=== PATIENT | female | born 1955 | race Caucasian/White ===

== ENCOUNTER → 2017-05-25 | Day surgery (SDC) | payer OTHER ==
[~2017-05-25] VITALS: Ht 147.3 cm; Wt 90.7 kg
[~2017-05-25] MED LIST: AMLODIPINE BESYL5 MG PO; AMOXICILLIN500 MG PO; ASPIRIN81 M1 PO; B12100 MC1 PO; BACTRIM DS 8001 TA1 PO; BP PILL; CALCIUM 600600 MG PO; CEFTIN500 M1 PO; CIPRO250 MG PO; DOXYCYCLINE100 M3 PO; Flovent 220 M220 MCG INH; Hydralazine Hyd25 MG PO; KEFLEX500 MG PO; LEVOTHYROXIN0.075 MG PO; MACROBID100 M1 PO; MOBIC7.5 MG PO; MOTRIN800 MG PO; OMEPRAZOLE40 MG PO; OXYBUTYNIN10 MG PO; OXYBUTYNIN5 MG PO; PHENERGAN25 M3 PO; PRINIVIL20 MG PO; PYRIDIUM200 M1 PO; Proloprim100 MG PO; SIMVASTATIN20 MG PO; SYNTHROID0.2 M1 PO; Synthroid,Levo50 MCG PO; ULTRAM50 MG PO; VENTOLIN H0.09 MG/AC INH; VICODIN ES 7501 TAB PO; VITAMIN D1000 IU PO; ZANTAC 150150 MG PO; ZITHROMAX Z PA250 MG PO; ZYRTEC10 MG PO
--- NOTE | ~2017-05-25 | PROC NOTE ---
[place], [place] PROCEDURE NOTE NAME: YONI TERESA UNIT #: [id number] ROOM: DOCTOR: BOBBI TEAGUE MD BIRTHDATE: [birth year] DOS: PROCEDURES: 1. Esophagogastroduodenoscopy and biopsy. 2. Colonoscopy and polypectomy. INDICATIONS: GERD, change in bowel habits and colon cancer screening. Informed consent was obtained from the patient after indication of procedures, the alternatives and potential complications were explained to her. PROCEDURE MEDICATIONS: Sedation was administered by Anesthesiology Department. SCOPE USED: Upper endoscopy was Olympus diagnostic adult upper endoscope GIF-180. Depth of insertion was to the descending duodenum. With the colonoscopy, the scope used was Olympus pediatric colonoscope variable stiffness GIF-180 100, that insertion was to the cecum, which was identified by the usual landmarks, appendiceal orifice, ileocecal valve and triangle fold. FINDINGS: After adequate sedation, the patient was placed in left lateral decubitus position. Upper endoscopy was performed first and the scope was introduced under direct visualization through the upper esophageal sphincter into the esophagus. Esophageal mucosa appeared normal with no ulcerations or strictures. Lower esophageal sphincter was identified at 38 cm from incisors and normal appearing Z-line. Stomach was then intubated and the gastric mucosa inspected. Severe atrophic gastritis was noted, with no discrete ulcers or active bleeding. A CLOtest was performed from a gastric antrum body. On retroflexed views in the fundus, no hiatal hernia was seen. Pylorus was intubated easily. The duodenal bulb and descending duodenum were within normal range. The scope was then withdrawn after the stomach was decompressed. We then proceeded with the colonoscopy. Rectal examination showed a diminished sphincter tone and no external hemorrhoids. Scope was introduced into the rectum, then advanced to the cecum with some difficulty due to looping in the left colon. The prep was good. Two polyps were identified. An 8-mm proximal transverse colon and a 6-mm descending colon polyps. Both polyps were removed with the cold mini snare and recovered. The remaining colon mucosa appeared otherwise normal with no evidence of diverticular ulcerations or obstructing lesions. Retroflexed views in the rectum were unremarkable. The scope was then withdrawn. After this, the rectum was decompressed. The patient tolerated the procedures well. IMPRESSION: 1. Atrophic gastritis, CLOtest performed. 2. Diminutive colon polyps x2, removed. 3. Normal colon mucosa otherwise. PLAN: We will review the histopathology and ANGIE test results, treat the patient accordingly. Office followup will be scheduled in 2-3 weeks. The patient was advised to avoid aspirin and NSAIDs for the next 10 days. [place], [place] PROCEDURE NOTE NAME: YONI TERESA UNIT #: [id number] ROOM: DOCTOR: ZAHIDA KENNY,BOBBI BIRTHDATE: [birth year] BOBBI TEAGUE MD CM:PROCNOTE:PROCEDURE NOTE [id number] MARSHALL TEAGUE MD
[2017-05-25 07:30] VITALS: BP 210/89
[2017-05-25 08:44] VITALS: BP 115/53
[2017-05-25 08:58] VITALS: BP 124/58
[2017-05-25 09:13] VITALS: BP 143/51
== END | disposition home or self-care (01) ==
LOC: SDC 05-21 08:45
DX: D12.3 Benign neoplasm of transverse colon (principal); D12.4 Benign neoplasm of descending colon; K29.60 Other gastritis without bleeding; J44.9 Chronic obstructive pulmonary disease, unspecified; E03.9 Hypothyroidism, unspecified; E78.00 Pure hypercholesterolemia, unspecified; K21.9 Gastro-esophageal reflux disease without esophagitis; M54.5 Low back pain; G89.29 Other chronic pain; I12.9 Hypertensive chronic kidney disease with stage 1 through stage 4 chronic kidney disease, or unspecified chronic kidney disease; N18.3 Chronic kidney disease, stage 3 (moderate); Z98.51 Tubal ligation status; Z82.49 Family history of ischemic heart disease and other diseases of the circulatory system; Z79.82 Long term (current) use of aspirin; Z79.899 Other long term (current) drug therapy; M19.90 Unspecified osteoarthritis, unspecified site

== ENCOUNTER 2017-06-07 14:09 | Emergency (ER) | payer OTHER ==
[~2017-06-07] VITALS: Ht 147.3 cm; Wt 90.7 kg
[2017-06-07] MEDS ORDERED: APRESOLINE25 MG PO (14:22)
[2017-06-07 14:33] LABS: BILIRUBIN NEGATIVE (NEGATIVE); BLOOD NEGATIVE (NEGATIVE); CLARITY SL CLOUDY (CLEAR); COLOR YELLOW (YELLOW); GLUCOSE NEGATIVE (NEGATIVE); KETONE NEGATIVE (NEGATIVE); LEUKO ESTERASE 3+ (NEGATIVE); NITRITE NEGATIVE (NEGATIVE); PH 7.5 (5.0-9.0); SPECIFIC GRAVITY 1.015 (1.005-1.030); UROBILINOGEN 0.2 E.U./dl (0.2-1.0)
[2017-06-07 14:40] LABS: BACTERIA 4+; WBC 41-50 wbc/hpf (0-5)
[2017-06-07 14:41] LABS: TRIP PHOS CRYSTALS 1+
[2017-06-07] MEDS ORDERED: PYRIDIUM200 M1 PO (14:48)
[2017-06-07] MEDS ORDERED: MACROBID100 M1 PO (14:48)
== END 2017-06-07 15:15 | disposition home or self-care (01) ==
LOC: ED 14:09
PROVIDERS: Nurse Practitioner Family
DX: N39.0 Urinary tract infection, site not specified (principal); Z88.2 Allergy status to sulfonamides; Z98.51 Tubal ligation status

== ENCOUNTER → 2017-07-06 | Outpatient (CLI) | payer OTHER ==
[~2017-07-06] MED LIST changes: +APRESOLINE25 MG PO; +Meclizine25 MG PO
== END | disposition home or self-care (01) ==
LOC: LAB 14:12
DX: A04.8 Other specified bacterial intestinal infections (principal)

== ENCOUNTER 2017-07-07 14:33 | Emergency (ER) | payer OTHER ==
[~2017-07-07] VITALS: Ht 144.7 cm; Wt 90.7 kg
[~2017-07-07 14:33] MED LIST changes: -Meclizine25 MG PO
[2017-07-07 15:05] LABS: BASO % 0.5 % (0.0-1.0); EOS # 0.2 10*3/uL (0.0-0.4); EOS % 2.2 % (1.0-4.0); HEMATOCRIT 41.4 % (37.0-47.0); LYMPH # 1.6 10*3/uL (1.3-4.4); LYMPH % 22.3 % (27.0-41.0); MEAN CELL VOLUME 84.7 fl (81.0-99.0); MEAN CORPUSCULAR HGB 26.6 pg (27.0-31.0); MEAN CORPUSCULAR HGB CONC 31.4 g/dl (33.0-37.0); MONO # 0.6 10*3/uL (0.1-1.0); MONO % 8.1 % (3.0-9.0); NEUT # 4.9 10*3/uL (2.3-7.9); NEUT % 66.6 % (47.0-73.0); PLATELET COUNT AUTOMATED 151 10*3/uL (130-400); RED BLOOD COUNT 4.89 10*6/uL (4.10-5.10); RED CELL DISTRI WIDTH 15.3 % (0-14.5); WHITE BLOOD COUNT 7.3 10*3/uL (4.8-10.8)
[2017-07-07 15:14] LABS: ACT PARTIAL THROMBO TIME 21.7 SECONDS (20.8-31.5); INTERNATIONAL NORM RATIO 0.9 (2.0-3.5)
[2017-07-07 15:20] LABS: CREATININE 1.78 mg/dL (0.55-1.02); POTASSIUM 4.8 mmol/L (3.5-5.1)
[2017-07-07 16:54] LABS: BILIRUBIN NEGATIVE (NEGATIVE); BLOOD TRACE-INTACT (NEGATIVE); CLARITY CLOUDY (CLEAR); COLOR YELLOW (YELLOW); GLUCOSE NEGATIVE (NEGATIVE); KETONE NEGATIVE (NEGATIVE); LEUKO ESTERASE 2+ (NEGATIVE); NITRITE NEGATIVE (NEGATIVE); PH 5.5 (5.0-9.0); SPECIFIC GRAVITY <= 1.005 (1.005-1.030); UROBILINOGEN 0.2 E.U./dl (0.2-1.0)
[2017-07-07 17:05] LABS: BACTERIA 4+; MUCOUS TRACE; RBC 0-2 rbc/hpf (0-2)
[2017-07-07] MEDS ORDERED: Meclizine25 MG PO (17:14)
== END 2017-07-07 17:16 | disposition home or self-care (01) ==
LOC: ED 14:33
PROVIDERS: Emergency Medicine
DX: R42 Dizziness and giddiness (principal); J45.909 Unspecified asthma, uncomplicated; I10 Essential (primary) hypertension; K21.9 Gastro-esophageal reflux disease without esophagitis; E78.00 Pure hypercholesterolemia, unspecified; E03.9 Hypothyroidism, unspecified; M81.0 Age-related osteoporosis without current pathological fracture; Z98.51 Tubal ligation status; Z98.890 Other specified postprocedural states; Z79.82 Long term (current) use of aspirin; Z79.899 Other long term (current) drug therapy; Z88.2 Allergy status to sulfonamides

== ENCOUNTER → 2017-07-09 | Outpatient (CLI) | payer OTHER ==
[~2017-07-09] MED LIST changes: +Meclizine25 MG PO
== END ==
LOC: RAD 13:59
DX: M17.11 Unilateral primary osteoarthritis, right knee (principal)

== ENCOUNTER → 2017-07-25 | Outpatient (CLI) | payer OTHER | END | disposition home or self-care (01) | LOC: MAMMO 10:23 | DX: Z12.31 Encounter for screening mammogram for malignant neoplasm of breast (principal) ==

== ENCOUNTER 2017-12-21 12:14 | Emergency (ER) | payer OTHER ==
[~2017-12-21] VITALS: Ht 147.3 cm; Wt 81.6 kg
[2017-12-21] MEDS ORDERED: CLINDAMYCIN HC300 MG PO (16:24)
== END 2017-12-21 16:29 | disposition home or self-care (01) ==
LOC: ED 12:14
DX: L03.213 Periorbital cellulitis (principal); I10 Essential (primary) hypertension; J45.909 Unspecified asthma, uncomplicated; K21.9 Gastro-esophageal reflux disease without esophagitis; E78.00 Pure hypercholesterolemia, unspecified; E03.9 Hypothyroidism, unspecified; N17.0 Acute kidney failure with tubular necrosis; Z98.51 Tubal ligation status; Z88.2 Allergy status to sulfonamides; Z79.899 Other long term (current) drug therapy; Z79.82 Long term (current) use of aspirin

== ENCOUNTER 2018-02-10 11:45 | Emergency (ER) | payer OTHER ==
[~2018-02-10] VITALS: Ht 144.7 cm; Wt 81.2 kg
[~2018-02-10 11:45] MED LIST changes: +CLINDAMYCIN HC300 MG PO
[2018-02-10] MEDS ORDERED: BACTROBAN NASAL1 GM NAS (11:51)
[2018-02-10] MEDS ORDERED: CEPHALEXIN500 M1 PO (11:52)
== END 2018-02-10 11:58 | disposition home or self-care (01) ==
LOC: ED 11:45
DX: J32.8 Other chronic sinusitis (principal); Z98.51 Tubal ligation status; Z98.890 Other specified postprocedural states; Z79.82 Long term (current) use of aspirin; Z79.899 Other long term (current) drug therapy; Z88.2 Allergy status to sulfonamides

== ENCOUNTER → 2018-11-20 | Outpatient (CLI) | payer OTHER, MEDICAID ==
[~2018-11-20] MED LIST changes: +BACTROBAN NASAL1 GM NAS; +CEPHALEXIN500 M1 PO
== END | disposition home or self-care (01) ==
LOC: RAD 11:50
DX: M17.11 Unilateral primary osteoarthritis, right knee (principal); M25.461 Effusion, right knee

== ENCOUNTER → 2019-04-24 | Outpatient (CLI) | payer OTHER, MEDICAID ==
[~2019-04-24] MED LIST changes: +ALENDRONATE SOD35 M1 PO; +LIPITOR10 MG PO; +PREDNISONE20 M1 PO; +VALTREX1000 MG PO
== END | disposition home or self-care (01) ==
LOC: RAD 14:05
DX: R06.02 Shortness of breath (principal)

== ENCOUNTER → 2019-05-06 | Outpatient (CLI) | payer OTHER, MEDICAID ==
[~2019-05-06] MED LIST changes: -ALENDRONATE SOD35 M1 PO; -LIPITOR10 MG PO; -PREDNISONE20 M1 PO; -VALTREX1000 MG PO
--- NOTE | ~2019-05-06 | EKG ---
[place], [place] ELECTROCARDIOGRAM REPORT NAME: YONI TERESA UNIT #: [id number] ROOM: DOCTOR: ABDON DRAFT REPORT BIRTHDATE: [birth year] [facility] Test Date: 2019-05-06 Test Time: 10:54:48 Pat Name: YONI TERESA Department: Room: Gender: F Litigation Legal Secretary: : 1955 Requested By: GREGORIA NGUYỄN Order Number: [id number] Reading MD: Ru Abbott MD Measurements Intervals [place] Rate: 106 P: -5 IN: 187 QRS: -12 QRSD: 83 T: -3 QT: 332 QTc: 441 Interpretive Statements Sinus tachycardia with irregular rate Abnormal R-wave progression, late transition Probable left ventricular hypertrophy Electronically Signed On 05-08-2019 7:49:35 PDT by Ru Abbott MD CM:EKGRPT:ELECTROCARDIOGRAM REPORT [id number] GREGORIA COPPOLA DRAFT REPORT GREGORIA NGUYỄN
== END | disposition home or self-care (01) ==
LOC: CARD 10:36
DX: R07.9 Chest pain, unspecified (principal)

== ENCOUNTER 2019-05-23 10:53 | Emergency (ER) | payer OTHER, MEDICAID ==
[~2019-05-23] VITALS: Ht 144.7 cm; Wt 79.4 kg
[2019-05-23 11:04] LABS: BILIRUBIN NEGATIVE (NEGATIVE); BLOOD NEGATIVE (NEGATIVE); CLARITY CLOUDY (CLEAR); COLOR YELLOW (YELLOW); GLUCOSE NEGATIVE (NEGATIVE); KETONE NEGATIVE (NEGATIVE); LEUKO ESTERASE 2+ (NEGATIVE); NITRITE NEGATIVE (NEGATIVE); PH 5.5 (5.0-9.0); UROBILINOGEN 0.2 E.U./dl (0.2-1.0)
[2019-05-23 11:14] LABS: BACTERIA 4+; EPITHELIAL CELLS 21-30; WBC 51-100 wbc/hpf (0-5)
[2019-05-23] MEDS ORDERED: VALTREX1000 MG PO (11:39)
[2019-05-23] MEDS ORDERED: PYRIDIUM200 M1 PO (11:39)
[2019-05-23] MEDS ORDERED: PREDNISONE20 M1 PO (11:39)
[2019-05-23] MEDS ORDERED: MACROBID100 M1 PO (11:39)
[2019-06-12] MEDS ORDERED: OMEPRAZOLE40 MG PO (11:08)
[2019-06-12] MEDS ORDERED: LIPITOR10 MG PO (11:08)
[2019-06-12] MEDS ORDERED: ALENDRONATE SOD35 M1 PO (11:08)
== END 2019-05-23 11:48 | disposition home or self-care (01) ==
LOC: ED 10:53
PROVIDERS: Emergency Medicine
DX: B02.9 Zoster without complications (principal); N39.0 Urinary tract infection, site not specified; Z88.2 Allergy status to sulfonamides; Z79.899 Other long term (current) drug therapy; Z79.82 Long term (current) use of aspirin

== ENCOUNTER → 2019-06-12 | Outpatient (CLI) | payer OTHER, MEDICAID ==
[~2019-06-12] MED LIST changes: +ALENDRONATE SOD35 M1 PO; +LIPITOR10 MG PO; +PREDNISONE20 M1 PO; +VALTREX1000 MG PO
--- NOTE | ~2019-06-12 | ST ---
[place], [place] EXERCISE STRESS TEST REPORT NAME: YONI TERESA UNIT #: [id number] ROOM: DOCTOR: KALEE KENNY [facility],DEANNE BIRTHDATE: [birth year] DOS: 06/12/2019 LEXISCAN CARDIOLITE The patient received Lexiscan 0.4 mg over 10 seconds. Heart rate is 108. No ischemic changes on EKG. No complication noted. Isotope was injected. Myocardial perfusion scan to follow. DEANNE GRANDA MD CM:STRESS:EXERCISE STRESS TEST REPORT [id number] DEANNE GRANDA MD [facility]
--- NOTE | 2019-06-12 14:54 | NUR ---
INFORMED SIGNED CONSENT OBTAINED FOR LEXISCAN STRESS TEST WITH DR GRANDA. RESTING EKG SINUS BRADYCARDIA HR 62 BP 142/70. PULSE OX 96% LUNGS CLEAR. PT COMPLETED ONE MINUTE OF A LEXISCAN PROTOCOL WITH PT RECEIVING LEXISCAN 0.4MG IV OVER 10 SECONDS. NO ARRHYTHMIAS OR ST CHANGES NOTED. LAST RECOVERY HR OF 97 BP 136/54. PT IN STABLE CONDITION, AWAITING NUCLEAR IMAGES.
== END | disposition home or self-care (01) ==
LOC: CARD 00:32
DX: I12.9 Hypertensive chronic kidney disease with stage 1 through stage 4 chronic kidney disease, or unspecified chronic kidney disease (principal); N18.3 Chronic kidney disease, stage 3 (moderate); R07.9 Chest pain, unspecified; R06.02 Shortness of breath; Z82.49 Family history of ischemic heart disease and other diseases of the circulatory system

== ENCOUNTER → 2019-08-27 | Outpatient (CLI) | payer OTHER, MEDICAID | END | disposition home or self-care (01) | LOC: RAD 13:33 | DX: R10.32 Left lower quadrant pain (principal) ==

== ENCOUNTER → 2019-09-09 | Outpatient (CLI) | payer OTHER, MEDICAID | END | disposition home or self-care (01) | LOC: MAMMO 08-18 10:00 | DX: Z12.31 Encounter for screening mammogram for malignant neoplasm of breast (principal) ==

== ENCOUNTER → 2019-09-12 | Outpatient (CLI) | payer OTHER, MEDICAID | END | disposition home or self-care (01) | LOC: CT 00:13 | DX: K57.90 Diverticulosis of intestine, part unspecified, without perforation or abscess without bleeding (principal) ==

== ENCOUNTER → 2020-02-04 | Outpatient (CLI) | payer OTHER, MEDICAID | END | disposition home or self-care (01) | LOC: CARD 10:26 | DX: R01.1 Cardiac murmur, unspecified (principal) ==

== ENCOUNTER 2020-10-10 04:55 | Inpatient (IN) | payer OTHER, MEDICAID ==
[~2020-10-10] VITALS: Ht 134.6 cm; Wt 84.5 kg
[~2020-10-10 04:55] MED LIST changes: +CALCIUM + D3 E1 EACH PO; -CALCIUM 600600 MG PO
[2020-10-10 05:01] VITALS: BP 155/64
[2020-10-10 05:39] LABS: BILIRUBIN Negative (Negative); BLOOD 2+ (Negative); CLARITY Cloudy (Clear); COLOR Yellow (Yellow); GLUCOSE Negative (Negative); KETONE 1+ (Negative); LEUKO ESTERASE Trace (Negative); NITRITE Positive (Negative); PH 6.5 (4.5-8.0); UROBILINOGEN 0.2 E.U./dl (0.0-1.0)
[2020-10-10 05:53] LABS: BACTERIA 2+
[2020-10-10 06:01] LABS: HEMATOCRIT 35.2 % (37.0-47.0); LYMPH # 0.5 10*3/uL (1.3-4.4); LYMPH % 13.7 % (27.0-41.0); MEAN CELL VOLUME 84.8 fl (81.0-99.0); MEAN CORPUSCULAR HGB 26.3 pg (27.0-31.0); MEAN PLATELET VOLUME 12.2 fl (9.6-12.3); MONO # 0.3 10*3/uL (0.1-1.0); MONO % 9.7 % (3.0-9.0); NEUT # 2.7 10*3/uL (2.3-7.9); PLATELET COUNT AUTOMATED 154 10*3/uL (130-400); RED BLOOD COUNT 4.15 10*6/uL (4.10-5.10); RED CELL DISTRI WIDTH 15.1 % (0-14.5); WHITE BLOOD COUNT 3.5 10*3/uL (4.8-10.8)
[2020-10-10 06:13] LABS: ALBUMIN 2.9 gm/dl (3.1-4.5); CREATININE 1.68 mg/dL (0.55-1.02); POTASSIUM 4.5 mmol/L (3.5-5.1); TOTAL PROTEIN 7.3 gm/dL (6.4-8.2)
[2020-10-10 07:29] VITALS: BP 135/57
[2020-10-10 11:58] VITALS: BP 152/60
[2020-10-10] MEDS ORDERED: METOPROLOL SUC100 M1 PO (12:05)
[2020-10-10] MEDS ORDERED: PLAVIX75 M1 PO (12:06)
[2020-10-10] MEDS ORDERED: FOSAMAX70 M1 PO (12:07)
[2020-10-10] MEDS ORDERED: VITAMIN C500 M8 PO (12:07)
[2020-10-10 16:00] VITALS: BP 126/61
[2020-10-10 20:00] VITALS: BP 130/68; BP 136/68
[2020-10-11] VITALS: BP 134/50
[2020-10-11 06:22] LABS: HEMATOCRIT 31.9 % (37.0-47.0); LYMPH # 0.6 10*3/uL (1.3-4.4); MEAN CELL VOLUME 82.9 fl (81.0-99.0); MEAN CORPUSCULAR HGB 26.2 pg (27.0-31.0); MEAN CORPUSCULAR HGB CONC 31.7 g/dl (33.0-37.0); MEAN PLATELET VOLUME 11.8 fl (9.6-12.3); MONO # 0.3 10*3/uL (0.1-1.0); MONO % 10.8 % (3.0-9.0); NEUT # 1.8 10*3/uL (2.3-7.9); NEUT % 65.5 % (47.0-73.0); PLATELET COUNT AUTOMATED 158 10*3/uL (130-400); RED BLOOD COUNT 3.85 10*6/uL (4.10-5.10); WHITE BLOOD COUNT 2.8 10*3/uL (4.8-10.8)
[2020-10-11 06:38] LABS: ALBUMIN 2.5 gm/dl (3.1-4.5); POTASSIUM 4.6 mmol/L (3.5-5.1); TOTAL PROTEIN 6.5 gm/dL (6.4-8.2)
[2020-10-11 06:45] LABS: CREATININE 1.25 mg/dL (0.55-1.02); THYROID STIM HORMONE (HS) 0.431 uIU/ml (0.358-4.75)
[2020-10-11 08:00] VITALS: BP 125/51
[2020-10-11 10:23] LABS: FERRITIN 807.6 ng/mL (10.0-291.0); VITAMIN D, 25-HYDROXY 33.6 ng/mL (30-100)
[2020-10-11 12:00] VITALS: BP 156/50
[2020-10-11 16:00] VITALS: BP 145/62
[2020-10-11 20:00] VITALS: BP 148/57
[2020-10-12] VITALS: BP 147/58
[2020-10-12 06:15] LABS: HEMATOCRIT 32.9 % (37.0-47.0); LYMPH # 0.9 10*3/uL (1.3-4.4); LYMPH % 12.6 % (27.0-41.0); MEAN CELL VOLUME 82.3 fl (81.0-99.0); MEAN CORPUSCULAR HGB CONC 31.6 g/dl (33.0-37.0); MEAN PLATELET VOLUME 12.4 fl (9.6-12.3); MONO # 0.4 10*3/uL (0.1-1.0); MONO % 6.2 % (3.0-9.0); NEUT # 5.6 10*3/uL (2.3-7.9); NEUT % 80.5 % (47.0-73.0); PLATELET COUNT AUTOMATED 184 10*3/uL (130-400); RED CELL DISTRI WIDTH 15.2 % (0-14.5); WHITE BLOOD COUNT 6.9 10*3/uL (4.8-10.8)
[2020-10-12 06:20] LABS: ALBUMIN 2.5 gm/dl (3.1-4.5); CREATININE 1.32 mg/dL (0.55-1.02); POTASSIUM 4.8 mmol/L (3.5-5.1); TOTAL PROTEIN 6.4 gm/dL (6.4-8.2)
[2020-10-12 07:14] LABS: ARTERIAL BLOOD GAS PH 7.392 (7.35-7.45); ARTERIAL BLOOD GAS PO2 64.8 (80-90)
[2020-10-12 07:15] LABS: ABG BASE EXCESS -8.8 mmol/L (-2.0-2.0)
[2020-10-12 08:00] VITALS: BP 147/76
[2020-10-12 12:00] VITALS: BP 119/88
[2020-10-12 12:11] LABS: ARTERIAL BLOOD GAS PH 7.386 (7.35-7.45); ARTERIAL BLOOD GAS PO2 72.7 (80-90)
[2020-10-12 12:12] LABS: ABG BASE EXCESS -8.2 mmol/L (-2.0-2.0)
[2020-10-12 16:00] VITALS: BP 127/42
[2020-10-12 20:00] VITALS: BP 138/46
[2020-10-13] VITALS: BP 140/46
[2020-10-13 06:11] LABS: ALBUMIN 2.2 gm/dl (3.1-4.5); CREATININE 1.29 mg/dL (0.55-1.02)
[2020-10-13 06:21] LABS: HEMATOCRIT 31.2 % (37.0-47.0); LYMPH # 0.7 10*3/uL (1.3-4.4); LYMPH % 9.4 % (27.0-41.0); MEAN CELL VOLUME 82.1 fl (81.0-99.0); MEAN CORPUSCULAR HGB 26.6 pg (27.0-31.0); MEAN CORPUSCULAR HGB CONC 32.4 g/dl (33.0-37.0); MEAN PLATELET VOLUME 11.9 fl (9.6-12.3); MONO # 0.5 10*3/uL (0.1-1.0); MONO % 6.9 % (3.0-9.0); NEUT % 82.3 % (47.0-73.0); PLATELET COUNT AUTOMATED 198 10*3/uL (130-400); RED CELL DISTRI WIDTH 15.2 % (0-14.5); WHITE BLOOD COUNT 7.2 10*3/uL (4.8-10.8)
[2020-10-13 06:31] VITALS: BP 130/30
[2020-10-13 08:00] VITALS: BP 114/83
[2020-10-13 08:28] LABS: ARTERIAL BLOOD GAS PH 7.397 (7.35-7.45); ARTERIAL BLOOD GAS PO2 59.4 (80-90)
[2020-10-13 08:29] LABS: ABG BASE EXCESS -7.3 mmol/L (-2.0-2.0)
[2020-10-13 12:00] VITALS: BP 132/42
[2020-10-13 16:00] VITALS: BP 132/44
[2020-10-13 20:00] VITALS: BP 131/51
[2020-10-14] VITALS: BP 143/59
[2020-10-14 06:20] LABS: HEMATOCRIT 32.5 % (37.0-47.0); MEAN CELL VOLUME 82.5 fl (81.0-99.0); MEAN CORPUSCULAR HGB 26.1 pg (27.0-31.0); MEAN CORPUSCULAR HGB CONC 31.7 g/dl (33.0-37.0); MEAN PLATELET VOLUME 11.6 fl (9.6-12.3); NUCLEATED RED BLOOD CELL 0.3 % (0.0-0.0); PLATELET COUNT AUTOMATED 244 10*3/uL (130-400); RED BLOOD COUNT 3.94 10*6/uL (4.10-5.10); RED CELL DISTRI WIDTH 15.2 % (0-14.5); WHITE BLOOD COUNT 7.4 10*3/uL (4.8-10.8)
[2020-10-14 06:22] LABS: ALBUMIN 2.2 gm/dl (3.1-4.5); CREATININE 1.27 mg/dL (0.55-1.02)
[2020-10-14 06:49] LABS: PLATELET SUFFICIENCY NORMAL (NORMAL); TOTAL CELLS COUNTED 100 #CELLS
[2020-10-14 06:50] LABS: BURR CELLS FEW; SCHISTOCYTES FEW
[2020-10-14 07:22] LABS: ARTERIAL BLOOD GAS PH 7.456 (7.35-7.45); ARTERIAL BLOOD GAS PO2 87.9 (80-90)
[2020-10-14 07:23] LABS: ABG BASE EXCESS -6.9 mmol/L (-2.0-2.0)
[2020-10-14 08:00] VITALS: BP 135/43
[2020-10-14 12:00] VITALS: BP 110/47
[2020-10-14 16:00] VITALS: BP 135/50
[2020-10-14 20:00] VITALS: BP 132/50
[2020-10-15] VITALS: BP 130/76
[2020-10-15 06:05] LABS: HEMATOCRIT 32.8 % (37.0-47.0); MEAN CELL VOLUME 81.6 fl (81.0-99.0); MEAN CORPUSCULAR HGB 26.4 pg (27.0-31.0); MEAN CORPUSCULAR HGB CONC 32.3 g/dl (33.0-37.0); MEAN PLATELET VOLUME 11.5 fl (9.6-12.3); PLATELET COUNT AUTOMATED 274 10*3/uL (130-400); RED BLOOD COUNT 4.02 10*6/uL (4.10-5.10); RED CELL DISTRI WIDTH 15.2 % (0-14.5); WHITE BLOOD COUNT 9.4 10*3/uL (4.8-10.8)
[2020-10-15 06:10] VITALS: BP 110/40
[2020-10-15 06:30] LABS: CREATININE 1.21 mg/dL (0.55-1.02); POTASSIUM 5.2 mmol/L (3.5-5.1)
[2020-10-15 06:31] LABS: ALBUMIN 2.2 gm/dl (3.1-4.5); TOTAL PROTEIN 5.8 gm/dL (6.4-8.2)
[2020-10-15 07:55] LABS: BURR CELLS MODERATE; PLATELET SUFFICIENCY NORMAL (NORMAL); TOTAL CELLS COUNTED 100 #CELLS
[2020-10-15 08:00] VITALS: BP 153/59
[2020-10-15 12:00] VITALS: BP 145/68
[2020-10-15 12:36] LABS: CREATININE 1.23 mg/dL (0.55-1.02); POTASSIUM 5.4 mmol/L (3.5-5.1)
[2020-10-15 16:00] VITALS: BP 148/63
[2020-10-15 20:00] VITALS: BP 129/46
[2020-10-16] VITALS: BP 118/48
[2020-10-16 06:17] LABS: HEMATOCRIT 34.1 % (37.0-47.0); MEAN CELL VOLUME 82.2 fl (81.0-99.0); MEAN CORPUSCULAR HGB CONC 31.7 g/dl (33.0-37.0); MEAN PLATELET VOLUME 11.3 fl (9.6-12.3); NUCLEATED RED BLOOD CELL 0.2 % (0.0-0.0); PLATELET COUNT AUTOMATED 281 10*3/uL (130-400); RED BLOOD COUNT 4.15 10*6/uL (4.10-5.10); RED CELL DISTRI WIDTH 15.4 % (0-14.5); WHITE BLOOD COUNT 9.5 10*3/uL (4.8-10.8)
[2020-10-16 06:26] LABS: ALBUMIN 2.3 gm/dl (3.1-4.5); POTASSIUM 5.6 mmol/L (3.5-5.1)
[2020-10-16 06:27] LABS: CREATININE 1.45 mg/dL (0.55-1.02)
[2020-10-16 07:02] LABS: PLATELET SUFFICIENCY NORMAL (NORMAL); POLYCHROMASIA SLIGHT; TOTAL CELLS COUNTED 100 #CELLS
[2020-10-16 07:03] LABS: OVALOCYTES FEW
[2020-10-16 08:00] VITALS: BP 122/52
[2020-10-16 12:00] VITALS: BP 147/134
[2020-10-16 16:00] VITALS: BP 121/58
[2020-10-16 20:00] VITALS: BP 156/56
[2020-10-17 06:20] LABS: HEMATOCRIT 34.6 % (37.0-47.0); MEAN CELL VOLUME 82.4 fl (81.0-99.0); MEAN CORPUSCULAR HGB CONC 31.5 g/dl (33.0-37.0); MEAN PLATELET VOLUME 11.6 fl (9.6-12.3); PLATELET COUNT AUTOMATED 296 10*3/uL (130-400); RED CELL DISTRI WIDTH 15.4 % (0-14.5); WHITE BLOOD COUNT 10.1 10*3/uL (4.8-10.8)
[2020-10-17 06:48] LABS: TOTAL CELLS COUNTED 100 #CELLS
[2020-10-17 06:49] LABS: BURR CELLS FEW; PLATELET SUFFICIENCY NORMAL (NORMAL); POLYCHROMASIA SLIGHT
[2020-10-17 06:52] LABS: ALBUMIN 2.3 gm/dl (3.1-4.5); CREATININE 1.17 mg/dL (0.55-1.02); POTASSIUM 5.1 mmol/L (3.5-5.1); TOTAL PROTEIN 5.8 gm/dL (6.4-8.2)
[2020-10-17 12:00] VITALS: BP 137/57
[2020-10-18 08:00] VITALS: BP 128/60
[2020-10-18 12:00] VITALS: BP 127/64
[2020-10-18 16:00] VITALS: BP 126/54
[2020-10-18 20:00] VITALS: BP 117/42
[2020-10-19] VITALS: BP 143/55
[2020-10-19 06:04] LABS: CREATININE 1.38 mg/dL (0.55-1.02); POTASSIUM 5.1 mmol/L (3.5-5.1)
[2020-10-19 06:20] LABS: HEMATOCRIT 34.7 % (37.0-47.0); MEAN CELL VOLUME 84.2 fl (81.0-99.0); MEAN CORPUSCULAR HGB 26.2 pg (27.0-31.0); MEAN CORPUSCULAR HGB CONC 31.1 g/dl (33.0-37.0); MEAN PLATELET VOLUME 11.4 fl (9.6-12.3); PLATELET COUNT AUTOMATED 241 10*3/uL (130-400); RED BLOOD COUNT 4.12 10*6/uL (4.10-5.10); RED CELL DISTRI WIDTH 15.4 % (0-14.5); WHITE BLOOD COUNT 9.9 10*3/uL (4.8-10.8)
[2020-10-19 07:45] LABS: POLYCHROMASIA SLIGHT; TOTAL CELLS COUNTED 100 #CELLS
[2020-10-19 07:46] LABS: BURR CELLS FEW; OVALOCYTES FEW; PLATELET SUFFICIENCY NORMAL (NORMAL)
[2020-10-19 08:00] VITALS: BP 159/56
[2020-10-19 12:00] VITALS: BP 117/50
[2020-10-19 16:19] VITALS: BP 128/49
[2020-10-19 20:08] VITALS: BP 143/54
[2020-10-20] VITALS: BP 139/69
[2020-10-20 06:21] LABS: HEMATOCRIT 34.8 % (37.0-47.0); MEAN CELL VOLUME 84.5 fl (81.0-99.0); MEAN CORPUSCULAR HGB 26.2 pg (27.0-31.0); MEAN PLATELET VOLUME 11.4 fl (9.6-12.3); PLATELET COUNT AUTOMATED 222 10*3/uL (130-400); RED BLOOD COUNT 4.12 10*6/uL (4.10-5.10); RED CELL DISTRI WIDTH 15.2 % (0-14.5); WHITE BLOOD COUNT 11.5 10*3/uL (4.8-10.8)
[2020-10-20 06:28] LABS: CHLORIDE 110 mmol/L (98-107); POTASSIUM 5.5 mmol/L (3.5-5.1); SODIUM 138 mmol/L (136-145)
[2020-10-20 06:40] LABS: BUN 57 mg/dl (7-24); CREATININE 1.32 mg/dL (0.55-1.02); LDH 445 U/L (84-246)
[2020-10-20 07:16] LABS: TOTAL CELLS COUNTED 100 #CELLS
[2020-10-20 07:17] LABS: BURR CELLS FEW; PLATELET SUFFICIENCY NORMAL (NORMAL)
[2020-10-20 08:00] VITALS: BP 133/63
[2020-10-20 12:00] VITALS: BP 140/75
[2020-10-20 16:00] VITALS: BP 141/67
[2020-10-20 16:54] LABS: CREATININE 1.27 mg/dL (0.55-1.02)
[2020-10-20 17:00] LABS: POTASSIUM 3.9 mmol/L (3.5-5.1)
[2020-10-20 20:00] VITALS: BP 130/74
[2020-10-21] VITALS: BP 128/69
[2020-10-21 06:25] LABS: HEMATOCRIT 33.5 % (37.0-47.0); MEAN CELL VOLUME 81.5 fl (81.0-99.0); MEAN CORPUSCULAR HGB 26.3 pg (27.0-31.0); MEAN CORPUSCULAR HGB CONC 32.2 g/dl (33.0-37.0); PLATELET COUNT AUTOMATED 193 10*3/uL (130-400); RED BLOOD COUNT 4.11 10*6/uL (4.10-5.10); RED CELL DISTRI WIDTH 14.8 % (0-14.5); WHITE BLOOD COUNT 20.6 10*3/uL (4.8-10.8)
[2020-10-21 06:51] LABS: CREATININE 1.32 mg/dL (0.55-1.02)
[2020-10-21 08:00] VITALS: BP 115/81
[2020-10-21 08:05] LABS: PLATELET SUFFICIENCY NORMAL (NORMAL); SCHISTOCYTES FEW; TOTAL CELLS COUNTED 100 #CELLS; TOXIC GRANULATION SLIGHT
[2020-10-21 08:06] LABS: BURR CELLS FEW
[2020-10-21 12:00] VITALS: BP 110/45
[2020-10-21 16:00] VITALS: BP 116/46
[2020-10-21 20:00] VITALS: BP 146/93
[2020-10-22] VITALS: BP 130/45
[2020-10-22 06:33] LABS: HEMATOCRIT 29.3 % (37.0-47.0); MEAN CELL VOLUME 82.3 fl (81.0-99.0); MEAN CORPUSCULAR HGB 26.4 pg (27.0-31.0); MEAN CORPUSCULAR HGB CONC 32.1 g/dl (33.0-37.0); MEAN PLATELET VOLUME 11.9 fl (9.6-12.3); PLATELET COUNT AUTOMATED 140 10*3/uL (130-400); RED BLOOD COUNT 3.56 10*6/uL (4.10-5.10); RED CELL DISTRI WIDTH 14.9 % (0-14.5); WHITE BLOOD COUNT 16.7 10*3/uL (4.8-10.8)
[2020-10-22 06:46] LABS: CREATININE 1.32 mg/dL (0.55-1.02); POTASSIUM 3.9 mmol/L (3.5-5.1)
[2020-10-22 06:50] LABS: BURR CELLS FEW; OVALOCYTES FEW; PLATELET SUFFICIENCY NORMAL (NORMAL); TOTAL CELLS COUNTED 100 #CELLS
[2020-10-22 06:51] LABS: ROULEAUX SLIGHT; TOXIC GRANULATION SLIGHT
[2020-10-22 08:00] VITALS: BP 134/36
[2020-10-22 12:00] VITALS: BP 141/84
[2020-10-22 16:00] VITALS: BP 132/67
[2020-10-22 20:00] VITALS: BP 134/81
[2020-10-23] VITALS: BP 136/45
[2020-10-23 05:43] LABS: CREATININE 1.25 mg/dL (0.55-1.02); POTASSIUM 4.1 mmol/L (3.5-5.1)
[2020-10-23 06:13] LABS: HEMATOCRIT 28.7 % (37.0-47.0); MEAN CELL VOLUME 84.9 fl (81.0-99.0); MEAN CORPUSCULAR HGB 26.6 pg (27.0-31.0); MEAN CORPUSCULAR HGB CONC 31.4 g/dl (33.0-37.0); MEAN PLATELET VOLUME 12.2 fl (9.6-12.3); PLATELET COUNT AUTOMATED 107 10*3/uL (130-400); RED BLOOD COUNT 3.38 10*6/uL (4.10-5.10); RED CELL DISTRI WIDTH 15.1 % (0-14.5); WHITE BLOOD COUNT 11.5 10*3/uL (4.8-10.8)
[2020-10-23 06:36] LABS: BASOPHILS 1 % (0-1); PLATELET SUFFICIENCY LOW (NORMAL); TOTAL CELLS COUNTED 100 #CELLS
[2020-10-23 06:37] LABS: BURR CELLS FEW
[2020-10-23 08:00] VITALS: BP 124/47
[2020-10-23 12:00] VITALS: BP 120/51
[2020-10-23 16:00] VITALS: BP 131/49
[2020-10-23 20:00] VITALS: BP 102/62
[2020-10-24 00:30] VITALS: BP 115/57
[2020-10-24 08:00] VITALS: BP 123/51
[2020-10-24 08:20] LABS: BASO % 0.1 % (0.0-1.0); EOS # 0.1 10*3/uL (0.0-0.4); EOS % 1.9 % (1.0-4.0); HEMATOCRIT 28.2 % (37.0-47.0); LYMPH # 0.5 10*3/uL (1.3-4.4); LYMPH % 7.9 % (27.0-41.0); MEAN CELL VOLUME 86.5 fl (81.0-99.0); MEAN CORPUSCULAR HGB 26.7 pg (27.0-31.0); MEAN CORPUSCULAR HGB CONC 30.9 g/dl (33.0-37.0); MEAN PLATELET VOLUME 12.2 fl (9.6-12.3); MONO # 0.3 10*3/uL (0.1-1.0); MONO % 4.3 % (3.0-9.0); NEUT # 5.7 10*3/uL (2.3-7.9); NEUT % 85.2 % (47.0-73.0); PLATELET COUNT AUTOMATED 94 10*3/uL (130-400); RED BLOOD COUNT 3.26 10*6/uL (4.10-5.10); RED CELL DISTRI WIDTH 15.3 % (0-14.5); WHITE BLOOD COUNT 6.7 10*3/uL (4.8-10.8)
[2020-10-24 08:23] LABS: ALBUMIN 1.6 gm/dl (3.1-4.5); CREATININE 1.5 mg/dL (0.55-1.02); POTASSIUM 4.1 mmol/L (3.5-5.1); TOTAL PROTEIN 5.9 gm/dL (6.4-8.2)
[2020-10-24 12:00] VITALS: BP 132/59
[2020-10-24 15:02] LABS: BILIRUBIN Negative (Negative); BLOOD Negative (Negative); CLARITY Cloudy (Clear); COLOR Yellow (Yellow); GLUCOSE Negative (Negative); KETONE Negative (Negative); LEUKO ESTERASE Negative (Negative); NITRITE Negative (Negative); SPECIFIC GRAVITY 1.015 (1.001-1.030)
[2020-10-24 15:21] LABS: ABG BASE EXCESS -2.4 mmol/L (-2.0-2.0); ARTERIAL BLOOD GAS PH 7.372 (7.35-7.45); ARTERIAL BLOOD GAS PO2 107.9 (80-90)
[2020-10-24 15:22] LABS: BACTERIA 1+
[2020-10-24 16:00] VITALS: BP 121/48
[2020-10-24 20:00] VITALS: BP 144/41
[2020-10-25] VITALS: BP 118/48
[2020-10-25 06:20] LABS: BASO % 0.1 % (0.0-1.0); EOS % 0.4 % (1.0-4.0); HEMATOCRIT 25.7 % (37.0-47.0); LYMPH # 0.4 10*3/uL (1.3-4.4); LYMPH % 4.8 % (27.0-41.0); MEAN CELL VOLUME 87.7 fl (81.0-99.0); MEAN CORPUSCULAR HGB 26.6 pg (27.0-31.0); MEAN CORPUSCULAR HGB CONC 30.4 g/dl (33.0-37.0); MEAN PLATELET VOLUME 12.5 fl (9.6-12.3); MONO # 0.4 10*3/uL (0.1-1.0); MONO % 4.7 % (3.0-9.0); NEUT % 89.4 % (47.0-73.0); PLATELET COUNT AUTOMATED 105 10*3/uL (130-400); RED BLOOD COUNT 2.93 10*6/uL (4.10-5.10); RED CELL DISTRI WIDTH 15.6 % (0-14.5); WHITE BLOOD COUNT 8.9 10*3/uL (4.8-10.8)
[2020-10-25 06:40] LABS: ALBUMIN 1.5 gm/dl (3.1-4.5); CREATININE 1.31 mg/dL (0.55-1.02); POTASSIUM 4.2 mmol/L (3.5-5.1); TOTAL PROTEIN 5.6 gm/dL (6.4-8.2)
[2020-10-25 08:00] VITALS: BP 128/48
[2020-10-25 09:11] LABS: ARTERIAL BLOOD GAS PH 7.357 (7.35-7.45); ARTERIAL BLOOD GAS PO2 73.6 (80-90)
[2020-10-25 09:13] LABS: ABG BASE EXCESS -6.3 mmol/L (-2.0-2.0)
[2020-10-25 14:00] VITALS: BP 108/40
[2020-10-25 16:00] VITALS: BP 92/40
[2020-10-25 20:04] VITALS: BP 111/66
[2020-10-26] VITALS: BP 142/85
[2020-10-26 06:09] LABS: HEMATOCRIT 28.9 % (37.0-47.0); MEAN CORPUSCULAR HGB 26.8 pg (27.0-31.0); MEAN CORPUSCULAR HGB CONC 29.8 g/dl (33.0-37.0); PLATELET COUNT AUTOMATED 115 10*3/uL (130-400); RED BLOOD COUNT 3.21 10*6/uL (4.10-5.10); RED CELL DISTRI WIDTH 15.9 % (0-14.5); RETICULOCYTE % 1.08 % (0.50-2.50); WHITE BLOOD COUNT 12.2 10*3/uL (4.8-10.8)
[2020-10-26 06:17] LABS: ALBUMIN 1.7 gm/dl (3.1-4.5); CREATININE 1.58 mg/dL (0.55-1.02); POTASSIUM 4.6 mmol/L (3.5-5.1)
[2020-10-26 06:21] LABS: TOTAL PROTEIN 6.2 gm/dL (6.4-8.2)
[2020-10-26 06:41] LABS: BURR CELLS FEW; PLATELET SUFFICIENCY LOW (NORMAL); ROULEAUX SLIGHT; TOTAL CELLS COUNTED 100 #CELLS; TOXIC GRANULATION SLIGHT
[2020-10-26 06:42] LABS: OVALOCYTES FEW; SCHISTOCYTES FEW
[2020-10-26 08:00] VITALS: BP 134/82
[2020-10-26 11:12] LABS: ABG BASE EXCESS -8.5 mmol/L (-2.0-2.0); ARTERIAL BLOOD GAS PH 7.231 (7.35-7.45); ARTERIAL BLOOD GAS PO2 58.4 (80-90)
[2020-10-26 12:00] VITALS: BP 144/67
[2020-10-26 13:33] LABS: CREATININE 1.58 mg/dL (0.55-1.02); POTASSIUM 4.3 mmol/L (3.5-5.1)
[2020-10-26 14:02] VITALS: BP 108/48
== END 2020-10-26 15:01 | disposition short-term general hospital (02) | DRG 871 ==
LOC: ED 04:55 → 4E 09:53 → EDHOLD 09:53 → 4E 11:30 → ICCU 10-26 10:51
PROVIDERS: Emergency Medicine; Internal Medicine; Internal Medicine Critical Care Medicine; Registered Nurse; Student in an Organized Health Care Education/Training Program; ADMIT Student in an Organized Health Care Education/Training Program; ATTEND Student in an Organized Health Care Education/Training Program
PROC: 5A09357 Assistance with Respiratory Ventilation, Less than 24 Consecutive Hours, Continuous Positive Airway Pressure (ICD-10-PCS; 2020-10-11)
PROC: 5A0945A Assistance with Respiratory Ventilation, 24-96 Consecutive Hours, High Flow/Velocity Cannula (ICD-10-PCS; 2020-10-11)
PROC: XW033E5 Introduction of Remdesivir Anti-infective into Peripheral Vein, Percutaneous Approach, New Technology Group 5 (ICD-10-PCS; 2020-10-12)
PROC: 5A09357 Assistance with Respiratory Ventilation, Less than 24 Consecutive Hours, Continuous Positive Airway Pressure (ICD-10-PCS; 2020-10-13)
PROC: 5A09357 Assistance with Respiratory Ventilation, Less than 24 Consecutive Hours, Continuous Positive Airway Pressure (ICD-10-PCS; 2020-10-14)
PROC: 5A09357 Assistance with Respiratory Ventilation, Less than 24 Consecutive Hours, Continuous Positive Airway Pressure (ICD-10-PCS; principal; 2020-10-15)
PROC: 5A09357 Assistance with Respiratory Ventilation, Less than 24 Consecutive Hours, Continuous Positive Airway Pressure (ICD-10-PCS; 2020-10-16)
PROC: 5A09357 Assistance with Respiratory Ventilation, Less than 24 Consecutive Hours, Continuous Positive Airway Pressure (ICD-10-PCS; 2020-10-17)
PROC: 5A09357 Assistance with Respiratory Ventilation, Less than 24 Consecutive Hours, Continuous Positive Airway Pressure (ICD-10-PCS; 2020-10-19)
PROC: 5A0935A Assistance with Respiratory Ventilation, Less than 24 Consecutive Hours, High Flow/Velocity Cannula (ICD-10-PCS; 2020-10-19)
PROC: 5A09357 Assistance with Respiratory Ventilation, Less than 24 Consecutive Hours, Continuous Positive Airway Pressure (ICD-10-PCS; 2020-10-21)
PROC: 5A09357 Assistance with Respiratory Ventilation, Less than 24 Consecutive Hours, Continuous Positive Airway Pressure (ICD-10-PCS; 2020-10-23)
PROC: 5A0935A Assistance with Respiratory Ventilation, Less than 24 Consecutive Hours, High Flow/Velocity Cannula (ICD-10-PCS; 2020-10-24)
PROC: 5A09457 Assistance with Respiratory Ventilation, 24-96 Consecutive Hours, Continuous Positive Airway Pressure (ICD-10-PCS; 2020-10-24)
PROC: 02HV33Z Insertion of Infusion Device into Superior Vena Cava, Percutaneous Approach (ICD-10-PCS; 2020-10-26)
PROC: B548ZZA Ultrasonography of Superior Vena Cava, Guidance (ICD-10-PCS; 2020-10-26)
PROC: 5A1935Z Respiratory Ventilation, Less than 24 Consecutive Hours (ICD-10-PCS; 2020-10-26)
PROC: 0BH17EZ Insertion of Endotracheal Airway into Trachea, Via Natural or Artificial Opening (ICD-10-PCS; 2020-10-26)
DX: A41.50 Gram-negative sepsis, unspecified (principal); U07.1 COVID-19; J12.82 Pneumonia due to coronavirus disease 2019; J96.01 Acute respiratory failure with hypoxia; G93.41 Metabolic encephalopathy; N39.0 Urinary tract infection, site not specified; N17.9 Acute kidney failure, unspecified; D64.9 Anemia, unspecified; K21.9 Gastro-esophageal reflux disease without esophagitis; M81.0 Age-related osteoporosis without current pathological fracture; E66.01 Morbid (severe) obesity due to excess calories; E87.5 Hyperkalemia; N18.32 Chronic kidney disease, stage 3b; R74.01 Elevation of levels of liver transaminase levels; I12.9 Hypertensive chronic kidney disease with stage 1 through stage 4 chronic kidney disease, or unspecified chronic kidney disease; R65.20 Severe sepsis without septic shock; Z88.2 Allergy status to sulfonamides; Z82.49 Family history of ischemic heart disease and other diseases of the circulatory system; Z83.3 Family history of diabetes mellitus; Z79.82 Long term (current) use of aspirin; Z79.899 Other long term (current) drug therapy